=== PATIENT | male | born 1975 | race Caucasian/White ===

== ENCOUNTER → 2021-12-16 | Outpatient (CLI) | payer OTHER | LOC: RAD 10:08 | DX: M25.531 Pain in right wrist (principal); S62.316A Displaced fracture of base of fifth metacarpal bone, right hand, initial encounter for closed fracture | CPT/HCPCS: 73110 ==

== ENCOUNTER → 2021-12-22 | Outpatient (CLI) | payer OTHER | LOC: KOH-I 11:45 | DX: S62.316A Displaced fracture of base of fifth metacarpal bone, right hand, initial encounter for closed fracture (principal) | CPT/HCPCS: 73200 ==